=== PATIENT | female | born 1950 | race Asian ===

== ENCOUNTER 2017-02-21 09:38 | Outpatient (CLI) | payer MEDICAID | END 2017-02-21 23:59 | DX: M25.562 Pain in left knee (principal); E04.2 Nontoxic multinodular goiter; I10 Essential (primary) hypertension; E78.5 Hyperlipidemia, unspecified ==

== ENCOUNTER 2017-02-21 10:32 | Outpatient (CLI) | payer MEDICAID | END 2017-02-21 10:33 | disposition home or self-care (01) | DX: M17.0 Bilateral primary osteoarthritis of knee (principal); M25.462 Effusion, left knee; M25.461 Effusion, right knee ==

== ENCOUNTER 2018-03-14 08:00 | Outpatient (CLI) | payer MEDICAID ==
[2018-03-14 18:54] LABS: BASOPHILS % (AUTO) 0.7 %; EOSINOPHILS # (AUTO) 0.2 10^3/uL (0.0-0.7); EOSINOPHILS % (AUTO) 2.6 %; HGB - HEMOGLOBIN 12.6 g/dL (12.0-16.0); LYMPHOCYTES # (AUTO) 1.6 10^3/uL (1.5-3.5); LYMPHOCYTES % (AUTO) 25.3 %; MEAN CORPUSCULAR HEMOGLOBIN 29.6 pg (27.0-31.0); MEAN CORPUSCULAR HGB CONC 31.9 g/dL (32.0-36.0); MEAN CORPUSCULAR VOLUME 92.8 fL (81.0-99.0); MEAN PLATELET VOLUME 8.6 fL (7.9-10.8); MONOCYTES # (AUTO) 0.4 10^3/uL (0.0-1.0); MONOCYTES % (AUTO) 5.8 %; NEUTROPHILS # (AUTO) 4.1 10^3/uL (1.5-6.6); NEUTROPHILS % (AUTO) 65.6 %; PLT - PLATELET COUNT 273 10^3/uL (130-450); RED BLOOD COUNT 4.24 10^6/uL (4.20-5.40); RED CELL DISTRIBUTION WIDTH 13.3 % (12.0-15.0); WHITE BLOOD COUNT 6.2 x10^3/uL (4.8-10.8)
[2018-03-14 19:23] LABS: ALBUMIN 4.2 g/dL (3.2-5.5); ALBUMIN/GLOBULIN RATIO 1.2 (1.0-2.2); ALKALINE PHOSPHATASE 85 IU/L (42-121); ALT ALANINE AMINOTRANSFERASE 25 IU/L (10-60); AST ASPARTATE AMINOTRANSFERASE 22 IU/L (10-42); BILIRUBIN,TOTAL 0.7 mg/dL (0.2-1.0); BUN - BLOOD UREA NITROGEN 13 mg/dL (6-20); CALCIUM 9.1 mg/dL (8.5-10.3); CARBON DIOXIDE - CO2 26 mmol/L (21-32); CHLORIDE 107 mmol/L (101-111); CHOL/HDL RATIO 2.8 (<4.4); CHOLESTEROL 144 mg/dL; CREATININE 0.7 mg/dL (0.4-1.0); GFR - MDRD 83 (>89); GLUCOSE 104 mg/dL (70-100); HDL CHOLESTEROL 52 mg/dL; LDL CHOLESTEROL,CALCULATED 61 mg/dL; LDL/HDL RATIO 1.2 (<4.4); SODIUM 141 mmol/L (135-145); TOTAL PROTEIN 7.6 g/dL (6.7-8.2); VLDL CHOLESTEROL 31 mg/dL
== END 2018-03-14 08:01 ==
LOC: LAB.N 08:00
PROVIDERS: ATTEND Family Medicine
DX: Z00.00 Encounter for general adult medical examination without abnormal findings (principal); E04.2 Nontoxic multinodular goiter
CPT/HCPCS: 36415; 80053; 80061; 83721; 84443; 85025

== ENCOUNTER 2018-12-23 11:20 | Emergency (ER) | payer MEDICAID ==
--- NOTE | 2018-12-23 12:37 | XRAY Report ---
Reason: cough/congestion Procedure Date: 12/23/2018 Accession Number: [id number] / [id number] Procedure: XR - Chest 2 View X-Ray CPT Code: 52114 FULL RESULT: EXAM: CHEST RADIOGRAPHY EXAM DATE: 12/23/2018 12:01 PM. CLINICAL HISTORY: Cough/congestion. COMPARISON: None. TECHNIQUE: 2 views. FINDINGS: Lungs/Pleura: No focal opacities evident. No pleural effusion. No pneumothorax. Normal volumes. Mediastinum: Heart and mediastinal contours are unremarkable. Other: None. IMPRESSION: Normal 2-view chest radiography. [facility]
--- NOTE | 2018-12-23 13:37 | ED Physician Documentation ---
PD HPI URI - Stated complaint Stated Complaint: COUGH - Chief complaint Chief Complaint: Resp - History obtained from History obtained from: Patient, Family - History of Present Illness Timing - onset: Other (2 weeks non productive Cough, the whole family is been sick with same. No fevers. She is mildly short of breath with only coughing. They are also worried about a rash and toenail fungus on the right foot.) Review of Systems Constitutional: denies: Fever, Chills Throat: denies: Dental pain / toothache, Sore throat Cardiac: denies: Chest pain / pressure, Palpitations Respiratory: reports: Cough. 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 12/23/18 Doxycycline Hyclate 100 mg PO BID #20 capsule 12/23/18 - Social History Does the pt smoke?: No Smoking Status: Never smoker Does the pt drink ETOH?: No Does the pt have substance abuse?: No - Immunizations Immunizations are current?: No - POLST Patient has POLST: No PD ED PE NORMAL - Vitals Vital signs reviewed: Yes - General General: Alert and oriented X 3, No acute distress - Neck Neck: Supple, no meningeal sign, No bony TTP - Cardiac Cardiac: RRR, No murmur - Respiratory Respiratory: No respiratory distress, Other (mild rhonchi) - Abdomen Abdomen: Non tender - Extremities Extremities: Other (She has onychiomycosis of all the toenails of the right foot with athlete's foot as well.) - Neuro Neuro: Alert and oriented X 3, Normal speech Results - Vitals Vitals: Vital Signs - 24 hr 12/23/18 11:45 Temperature 37.1 C Heart Rate 74 Respiratory 18 Rate Blood Pressure 131/75 H O2 Saturation 97 Oxygen O2 Source Room air Departure - Departure Disposition: 01 Home, Self Care Clinical Impression: Bronchitis, Onychomycosis Condition: Good Record reviewed to determine appropriate education?: Yes Instructions: ED Bronchitis Asthmatic Prescriptions: Clotrimazole 1 gm TP BID #2 cream..g. Doxycycline Hyclate 100 mg PO BID #20 capsule Comments: Call your doctor to arrange a follow-up appointment, make the next available appointment. In the interim, return anytime if worse or if new symptoms develop. Your blood pressure was elevated today on check into the emergency department. This does not mean that you have hypertension, it is a common phenomenon to come to the emergency department and have elevated blood pressure. I recommend that you see your primary care physician within the week to have it rechecked when you are feeling better.
[2018-12-23 13:45] VITALS: BP 151/72
== END 2018-12-23 13:45 | disposition home or self-care (01) ==
LOC: ED 11:20
DX: J40 Bronchitis, not specified as acute or chronic (principal); B35.1 Tinea unguium; B35.3 Tinea pedis; I10 Essential (primary) hypertension
CPT/HCPCS: 71046; 99283

== ENCOUNTER 2019-02-18 13:47 | Emergency (ER) | payer MEDICAID ==
--- NOTE | 2019-02-18 14:32 | ED Physician Documentation ---
History of Present Illness - Stated complaint Stated Complaint: BP ELEVATED DIZZY ROBERTS - Chief complaint Chief Complaint: Neuro - History obtained from History obtained from: Patient (via [employer]), Family (here mau warren) - History of Present Illness Timing: Other (Progressive headache and lightheaded x 4 days. Also C/O palpitations and chest discomfort, mild, more fluttering. No dyspnea.) - Additonal information Additional information: Further history, she does have a history of similar headaches, but has not had one in a long time. This was prior to moving to the [facility]. She also has a history of what she describes as a weak hearts that improved with her current antihypertensive medications. Review of Systems Ten Systems: 10 systems reviewed and negative Constitutional: reports: Reviewed and negative Nose: reports: Reviewed and negative Throat: denies: Sore throat Cardiac: reports: Reviewed and negative GI: reports: Nausea. 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 : None HEENT: None Psych: None Musculoskeletal: None Derm: None - Past Surgical History Past Surgical History: Yes - Present Medications Home Medications: Ambulatory Orders Medication Instructions Recorded Confirmed Ondansetron Odt [Zofran] 4 mg TL Q6H PRN #10 tablet 02/18/19 RX: Atorvastatin [Lipitor] PO BID 02/18/19 RX: Losartan Potassium OP QPM 02/18/19 RX: Meclizine HCl 25 mg PO Q6H PRN #20 tab.chew 02/18/19 RX: Metoprolol Tartrate PO BID 02/18/19 - Allergies Allergies/Adverse Reactions: Allergies Allergy/AdvReac Type Severity Reaction Status Date / Time No Known Drug Allergies Allergy Verified 02/18/19 14:17 - Living Situation Living Situation: reports: With family - Social History Does the pt smoke?: No Smoking Status: Never smoker Does the pt drink ETOH?: No Does the pt have substance abuse?: No - Immunizations Immunizations are current?: No - POLST Patient has POLST: No PD ED PE NORMAL - Vitals Vital signs reviewed: Yes - General General: Alert and oriented X 3, No acute distress - HEENT HEENT: PERRL, EOMI - Neck Neck: Supple, no meningeal sign, No bony TTP - Cardiac Cardiac: RRR, No murmur - Respiratory Respiratory: No respiratory distress, Clear bilaterally - Abdomen Abdomen: Normal bowel sounds, Soft, Non tender - Back Back: No CVA TTP, No spinal TTP - Derm Derm: Normal color, Warm and dry - Extremities Extremities: No edema, No calf tenderness / cord - Neuro Neuro: Alert and oriented X 3, Normal speech Eye Opening: Spontaneous Motor: Obeys Commands Verbal: Oriented GCS Score: 15 - Psych Psych: Normal mood, Normal affect Results - Vitals Vitals: Vital Signs - 24 hr 02/18/19 02/18/19 14:07 16:53 Temperature 36.4 C L 36.8 C Heart Rate 65 66 Respiratory 18 18 Rate Blood Pressure 190/92 H 132/66 H O2 Saturation 97 97 Oxygen O2 Source Room air - EKG (time done) 1554 Rate: Rate (enter#) (64) Rhythm: NSR [place]: Normal Intervals: Other (IVCD mild, QRSd 117msec) QRS: Normal Ischemia: Non specific changes Compare to prior EKG: Old EKG unavailable (no priors) Computer interpretation: Agree with computer - Labs Labs: Laboratory Tests 02/18/19 02/18/19 02/18/19 03:46 03:46 03:46 ESR 17 Sodium 139 Potassium 4.1 Chloride 104 Carbon Dioxide 24 Anion Gap 11.0 BUN 11 Creatinine 0.6 Estimated GFR (MDRD) 99 Glucose 136 H Calcium 8.7 Troponin I C-Reactive Protein < 1.0 Urine Color Urine Clarity Urine pH Ur Specific [place] Urine Protein Urine Glucose (UA) Urine Ketones Urine Occult Blood Urine Nitrite Urine Bilirubin Urine Urobilinogen Ur Leukocyte Esterase Ur Microscopic Review Urine Culture Comments 02/18/19 02/18/19 15:00 15:45 ESR Sodium Potassium Chloride Carbon Dioxide Anion Gap BUN Creatinine Estimated GFR (MDRD) Glucose Calcium Troponin I < 0.04 C-Reactive Protein Urine Color YELLOW Urine Clarity CLEAR Urine pH 6.5 Ur Specific [place] 1.010 Urine Protein NEGATIVE Urine Glucose (UA) NEGATIVE Urine Ketones NEGATIVE Urine Occult Blood NEGATIVE Urine Nitrite NEGATIVE Urine Bilirubin NEGATIVE Urine Urobilinogen 0.2 (NORMAL) Ur Leukocyte Esterase NEGATIVE Ur Microscopic Review NOT INDICATED Urine Culture Comments NOT INDICATED - Rads (name of study) CT head Radiology: EMP read contemporaneously (NAD) PD MEDICAL DECISION MAKING - ED course ED course: This is a 68-year-old woman who presents with dizziness and headache and some vague chest discomfort that is more of a palpitation than anything else. I was a little worried that some of the history got lost interest in translation, although it was described as a lightheadedness type dizziness. She looks like she had vertigo and that she was laying on her side with her eyes closed despite the lack of photophobia. There is nothing to suggest a central cause of vertigo but we trialed meclizine and Zofran after which she felt much better. Other diagnoses that were considered included giant cell arteritis but her inflammatory markers are negative, intracranial hemorrhage or malignancy but her head CT is negative. Also a brief cardiac work-up was undertaken given the chest discomfort without pertinent positive findings. Departure - Departure Disposition: 01 Home, Self Care Clinical Impression: Headache, Palpitation Condition: Good Record reviewed to determine appropriate education?: Yes Instructions: ED BPV Vertigo Prescriptions: RX: Meclizine HCl 25 mg PO Q6H PRN #20 tab.chew PRN Reason: Dizziness Ondansetron Odt [Zofran] 4 mg TL Q6H PRN #10 tablet PRN Reason: Nausea / Vomiting Comments: Call your doctor to arrange a follow-up appointment, make the next available appointment. In the interim, return anytime if worse or if new symptoms develop. Discharge Date/Time: 02/18/19 16:54
[2019-02-18] MEDS ORDERED: ONDANSETRON ODT 4 MG TABLET TL STA (14:57)
[2019-02-18] MEDS ORDERED: MECLIZINE 12.5 MG TABLET PO STA (14:57)
--- NOTE | 2019-02-18 15:16 | CT Report ---
Reason: new headache Procedure Date: 02/18/2019 Accession Number: [id number] / [id number] Procedure: CT - HEAD WO CPT Code: FULL RESULT: EXAM: CT HEAD EXAM DATE: 02/18/2019 03:06 PM. CLINICAL HISTORY: New headache. COMPARISON: None. TECHNIQUE: Multiaxial CT images were obtained from the foramen magnum to the vertex. Reformats: Sagittal and coronal. IV contrast: None. In accordance with CT protocol optimization, one or more of the following dose reduction techniques were utilized for this exam: automated exposure control, adjustment of mA and/or KV based on patient size, or use of iterative reconstructive technique. FINDINGS: Parenchyma: No intraparenchymal hemorrhage. No evidence of mass, midline shift, or CT findings of infarction. Cadet-white differentiation is distinct. Extraaxial Spaces: Normal for age. No subdural or epidural collections identified. Ventricles: Normal in size and position. Sinuses and Orbits: Imaged paranasal sinuses, orbits, and mastoids show no significant abnormality. Bones: No evidence of fracture or calvarial defect. Other: None. IMPRESSION: No acute intracranial abnormality. RAD[facility]
[2019-02-18 15:19] LABS: CALCIUM 8.7 mg/dL (8.5-10.3); CREATININE 0.6 mg/dL (0.4-1.0)
[2019-02-18 16:00] LABS: BILIRUBIN,URINE NEGATIVE (NEGATIVE); GLUCOSE, URINE (UA) NEGATIVE (NEGATIVE); KETONES,URINE (UA) NEGATIVE (NEGATIVE); LEUKOCYTE ESTERASE, URINE NEGATIVE (NEGATIVE); NITRITE,URINE NEGATIVE (NEGATIVE); OCCULT BLOOD,URINE NEGATIVE (NEGATIVE); PH,URINE 6.5 PH (5.0-7.5); PROTEIN,URINE NEGATIVE (NEGATIVE); UROBILINOGEN,URINE 0.2 (NORMAL) E.U./dL (NORMAL)
[2019-02-18 16:01] LABS: CLARITY,URINE CLEAR (CLEAR)
--- NOTE | 2019-02-18 16:01 | XRAY Report ---
Reason: chest discomfort Procedure Date: 02/18/2019 Accession Number: [id number] / [id number] Procedure: XR - Chest 2 View X-Ray CPT Code: 66841 FULL RESULT: EXAM: CHEST RADIOGRAPHY EXAM DATE: 02/18/2019 03:40 PM. CLINICAL HISTORY: Chest discomfort. COMPARISON: CHEST 2 VIEW 12/23/2018 12:01 PM. TECHNIQUE: 2 views. FINDINGS: Lungs/Pleura: No focal opacities evident. No pleural effusion. No pneumothorax. Normal volumes. Mediastinum: Mild calcifications of the aortic arch. Cardiac silhouette is not enlarged. Other: None. IMPRESSION: No acute cardiopulmonary abnormality. RADIA
[2019-02-18 16:54] VITALS: BP 132/66
== END 2019-02-18 16:54 | disposition home or self-care (01) ==
LOC: ED 13:47
DX: R51 Headache (principal); R00.2 Palpitations; E78.00 Pure hypercholesterolemia, unspecified; I10 Essential (primary) hypertension
CPT/HCPCS: 36415; 70450; 71046; 80048; 81003; 84484; 85651; 86140; 93005; 99283; A9270; Q0162; 81001; 87086

== ENCOUNTER 2019-03-31 08:00 | Outpatient (CLI) | payer MEDICAID ==
[2019-03-31 12:08] LABS: BASOPHILS % (AUTO) 0.9 %; EOSINOPHILS # (AUTO) 0.1 10^3/uL (0.0-0.7); EOSINOPHILS % (AUTO) 1.9 %; LYMPHOCYTES # (AUTO) 1.3 10^3/uL (1.5-3.5); LYMPHOCYTES % (AUTO) 27.1 %; MEAN CORPUSCULAR HEMOGLOBIN 30.2 pg (27.0-31.0); MEAN CORPUSCULAR HGB CONC 33.3 g/dL (32.0-36.0); MEAN CORPUSCULAR VOLUME 90.9 fL (81.0-99.0); MEAN PLATELET VOLUME 8.4 fL (7.9-10.8); MONOCYTES # (AUTO) 0.3 10^3/uL (0.0-1.0); MONOCYTES % (AUTO) 5.5 %; NEUTROPHILS # (AUTO) 3.1 10^3/uL (1.5-6.6); NEUTROPHILS % (AUTO) 64.6 %; PLT - PLATELET COUNT 261 10^3/uL (130-450); RED BLOOD COUNT 4.29 10^6/uL (4.20-5.40); RED CELL DISTRIBUTION WIDTH 13.2 % (12.0-15.0); WHITE BLOOD COUNT 4.7 x10^3/uL (4.8-10.8)
[2019-03-31 12:22] LABS: ALBUMIN/GLOBULIN RATIO 1.1 (1.0-2.2); ALKALINE PHOSPHATASE 88 IU/L (42-121); ALT ALANINE AMINOTRANSFERASE 17 IU/L (10-60); AST ASPARTATE AMINOTRANSFERASE 19 IU/L (10-42); BILIRUBIN,TOTAL 0.6 mg/dL (0.2-1.0); BUN - BLOOD UREA NITROGEN 10 mg/dL (6-20); CALCIUM 8.9 mg/dL (8.5-10.3); CARBON DIOXIDE - CO2 22 mmol/L (21-32); CHLORIDE 108 mmol/L (101-111); CHOL/HDL RATIO 2.6 (<4.4); CHOLESTEROL 129 mg/dL; CREATININE 0.7 mg/dL (0.4-1.0); GFR - MDRD 83 (>89); GLUCOSE 106 mg/dL (70-100); HDL CHOLESTEROL 49 mg/dL; LDL CHOLESTEROL,CALCULATED 51 mg/dL; SODIUM 141 mmol/L (135-145); TOTAL PROTEIN 7.8 g/dL (6.7-8.2); VLDL CHOLESTEROL 29 mg/dL
== END 2019-03-31 23:59 | disposition home or self-care (01) ==
LOC: LAB.N 08:00
PROVIDERS: ATTEND Nurse Practitioner Gerontology
DX: E78.5 Hyperlipidemia, unspecified (principal); I10 Essential (primary) hypertension
CPT/HCPCS: 36415; 80053; 80061; 83721; 85025

== ENCOUNTER 2019-03-31 11:13 | Outpatient (CLI) | payer MEDICAID ==
--- NOTE | 2019-03-31 12:41 | XRAY Report ---
Reason: pain in knee bilaterally Procedure Date: 03/31/2019 Accession Number: [id number] / [id number] Procedure: XRN - Knee 2 View BILAT CPT Code: FULL RESULT: EXAMS: 1. Right Knee Radiography 2. Left Knee Radiography EXAM DATE:03/31/2019 11:35 AM. CLINICAL HISTORY:Pain in knee bilaterally. COMPARISON: KNEE 2 VIEW BILAT 02/21/2017 11:27 AM. TECHNIQUE: 2 views each. FINDINGS: Right Knee: Bones: Normal. No fractures or bone lesions. Joints: Suprapatellar joint effusion is noted with suspected loose bodies in the popliteal fossa region as well as exuberant osteophytosis consistent with tricompartmental osteoarthrosis, moderate to severe joint space narrowing of the medial weightbearing compartment and at least mild joint space narrowing of the lateral weightbearing compartment with chondrocalcinosis. Soft Tissues: Normal. No soft tissue swelling. Left Knee: Bones: Knee joint effusion and intraarticular loose bodies are noted in the setting of marginal osteophytosis, at least moderate transverse narrowing of the medial weightbearing compartment and at least mild joint space narrowing of the lateral weightbearing compartment. Joints: Normal. No effusion. No subluxations. Soft Tissues: Normal. No soft tissue swelling. IMPRESSION: Bilateral tricompartmental osteoarthrosis. RAD[facility]
== END 2019-03-31 11:14 | disposition home or self-care (01) ==
LOC: DI.N 11:13
PROVIDERS: ATTEND Nurse Practitioner Gerontology
DX: M17.0 Bilateral primary osteoarthritis of knee (principal); E78.5 Hyperlipidemia, unspecified; I10 Essential (primary) hypertension
CPT/HCPCS: 36415; 73565; 80053; 80061; 83721; 85025

== ENCOUNTER 2019-08-03 10:30 | Emergency (ER) | payer MEDICAID ==
[2019-08-03 11:03] VITALS: BP 141/71
[2019-08-03] MEDS ORDERED: MECLIZINE 12.5 MG TABLET PO STA (11:16)
[2019-08-03] MEDS ORDERED: SODIUM CHLORIDE 0.9% 1,000 ML IV ONE (11:16)
[2019-08-03 11:27] LABS: BASOPHILS % (AUTO) 0.7 %; EOSINOPHILS # (AUTO) 0.1 10^3/uL (0.0-0.7); EOSINOPHILS % (AUTO) 2.3 %; HGB - HEMOGLOBIN 12.1 g/dL (12.0-16.0); LYMPHOCYTES # (AUTO) 1.1 10^3/uL (1.5-3.5); LYMPHOCYTES % (AUTO) 23.8 %; MEAN CORPUSCULAR HEMOGLOBIN 29.8 pg (27.0-31.0); MEAN CORPUSCULAR HGB CONC 31.7 g/dL (32.0-36.0); MEAN CORPUSCULAR VOLUME 94.1 fL (81.0-99.0); MEAN PLATELET VOLUME 10.2 fL (7.9-10.8); MONOCYTES # (AUTO) 0.3 10^3/uL (0.0-1.0); MONOCYTES % (AUTO) 6.8 %; NEUTROPHILS # (AUTO) 2.9 10^3/uL (1.5-6.6); NEUTROPHILS % (AUTO) 66.2 %; PLT - PLATELET COUNT 242 10^3/uL (130-450); RED BLOOD COUNT 4.06 10^6/uL (4.20-5.40); RED CELL DISTRIBUTION WIDTH 12.5 % (12.0-15.0); WHITE BLOOD COUNT 4.4 x10^3/uL (4.8-10.8)
--- NOTE | 2019-08-03 11:29 | ED Physician Documentation ---
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 These have been ongoing for several years. Seen here back in January for same. No acute findings on head CT at that time. She also states that she has felt dizzy today. Like the room is spinning. [place] nauseated earlier. This is better with rest and worse with movement and standing. Was diagnosed with BPPV a few months ago. Has not taken anything for this today. No chest pain. No shortness of breath. Review of Systems Constitutional: denies: Fever, Chills Ears: denies: Ear pain Nose: denies: Rhinorrhea / runny nose, Congestion Throat: denies: Sore throat Cardiac: denies: Chest pain / pressure, Palpitations Respiratory: denies: Dyspnea, Cough GI: reports: Nausea. 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 : None HEENT: None Psych: None Musculoskeletal: None Derm: None - Past Surgical History Past Surgical History: Yes - Present Medications Home Medications: Ambulatory Orders Medication Instructions Recorded Confirmed Atorvastatin [Lipitor] PO BID 02/18/19 Losartan Potassium OP QPM 02/18/19 Meclizine HCl 25 mg PO Q6H PRN #20 tab.chew 02/18/19 Metoprolol Tartrate PO BID 02/18/19 Ondansetron Odt [Zofran] 4 mg TL Q6H PRN #10 tablet 02/18/19 Meclizine [Antivert] 12.5 - 25 mg PO Q6H PRN #30 tablet 08/03/19 Ondansetron Odt [Zofran] 4 mg TL Q6H PRN #10 tablet 08/03/19 - Allergies Allergies/Adverse Reactions: Allergies Allergy/AdvReac Type Severity Reaction Status Date / Time No Known Drug Allergies Allergy Verified 02/18/19 14:17 - Social History Does the pt smoke?: No Smoking Status: Never smoker Does the pt drink ETOH?: No Does the pt have substance abuse?: No - Immunizations Immunizations are current?: No - POLST Patient has POLST: No PD ED PE NORMAL - Vitals Vital signs reviewed: Yes - General General: Alert and oriented X 3, No acute distress, Well developed/nourished - HEENT HEENT: Atraumatic, PERRL, Ears normal, Moist mucous membranes, Pharynx benign - Neck Neck: Supple, no meningeal sign - Cardiac Cardiac: RRR, Strong equal pulses - Respiratory Respiratory: No respiratory distress, Clear bilaterally - Abdomen Abdomen: Soft, Non tender, Non distended - Derm Derm: Warm and dry, No rash - Extremities Extremities: No edema - Neuro Neuro: Alert and oriented X 3, community mental health worker 2-12 intact, No motor deficit, No sensory deficit, Normal speech, Other (Horizontal nystagmus. Positive Hallpike to the left.) - Psych Psych: Normal mood, Normal affect Results - Vitals Vitals: Vital Signs - 24 hr 08/03/19 08/03/19 10:54 11:01 Temperature 36.7 C 36.4 C L Heart Rate 61 62 Respiratory 14 18 Rate Blood Pressure 147/66 H 141/71 H O2 Saturation 97 98 Oxygen O2 Source Room air - EKG (time done) 1057 Rate: Rate (enter#) (60) Rhythm: NSR [place]: Normal Intervals: Normal CT QRS: Normal Ischemia: Non specific changes Compare to prior EKG: Unchanged from prior EKG - Labs Labs: Laboratory Tests 08/03/19 08/03/19 11:15 11:15 WBC 4.4 L RBC 4.06 L Hgb 12.1 Hct 38.2 MCV 94.1 MCH 29.8 MCHC 31.7 L RDW 12.5 Plt Count 242 MPV 10.2 Neut # (Auto) 2.9 Lymph # (Auto) 1.1 L [place] # (Auto) 0.3 Eos # (Auto) 0.1 Baso # (Auto) 0.0 Absolute Nucleated RBC 0.00 Nucleated RBC % 0.0 Sodium 143 Potassium 3.5 Chloride 107 Carbon Dioxide 27 Anion Gap 9.0 BUN 12 Creatinine 0.7 Estimated GFR (MDRD) 83 L Glucose 143 H Calcium 8.7 Total Bilirubin 0.6 AST 17 ALT 16 Alkaline Phosphatase 90 Total Protein 7.4 Albumin 3.9 Globulin 3.5 Albumin/Globulin Ratio 1.1 Lipase 32 PD MEDICAL DECISION MAKING - ED course Complexity details: reviewed old records, reviewed results, re-evaluated patient, considered differential, d/w patient, d/w family ED course: 68-year-old female with what appears to be BPPV. She has had similar in the past. Possible Mnire's disease? Feels better after meclizine and Zofran. Ambulating well. No focal neurological deficits. Patient and family counseled regarding signs and symptoms for which I believe and urgent re-evaluation would be necessary. Patient with good understanding of and agreement to plan and is comfortable going home at this time This document was made in part using voice recognition software. While efforts are made to proofread this document, sound alike and grammatical errors may occur. Departure - Departure Disposition: 01 Home, Self Care Clinical Impression: BPV (benign positional vertigo) Qualifiers: Laterality: left Qualified Code(s): H81.12 - Benign paroxysmal vertigo, left ear Condition: Good Instructions: ED BPV Vertigo Follow-Up: your,doctor in 1 week [Other] Prescriptions: Meclizine [Antivert] 12.5 - 25 mg PO Q6H PRN #30 tablet PRN Reason: Vertigo Ondansetron Odt [Zofran] 4 mg TL Q6H PRN #10 tablet PRN Reason: Nausea / Vomiting Comments: Use the medications as prescribed. Return if you worsen. This should improve over the next few days. Follow-up with your doctor for further care. Discharge Date/Time: 08/03/19 13:05
[2019-08-03 11:39] LABS: ALBUMIN 3.9 g/dL (3.2-5.5); ALBUMIN/GLOBULIN RATIO 1.1 (1.0-2.2); BILIRUBIN,TOTAL 0.6 mg/dL (0.2-1.0); CALCIUM 8.7 mg/dL (8.5-10.3); CREATININE 0.7 mg/dL (0.4-1.0); TOTAL PROTEIN 7.4 g/dL (6.7-8.2)
== END 2019-08-03 13:05 | disposition home or self-care (01) ==
LOC: ED 10:30
DX: H81.12 Benign paroxysmal vertigo, left ear (principal); R51 Headache; I10 Essential (primary) hypertension
CPT/HCPCS: 36415; 80053; 83690; 85025; 93005; 96360; 99283; 99284; A9270

== ENCOUNTER 2020-07-07 08:00 | Outpatient (CLI) | payer MEDICAID ==
[2020-07-07 12:22] LABS: BASOPHILS % (AUTO) 0.4 %; EOSINOPHILS # (AUTO) 0.1 10^3/uL (0.0-0.7); EOSINOPHILS % (AUTO) 1.6 %; HGB - HEMOGLOBIN 12.9 g/dL (12.0-16.0); LYMPHOCYTES # (AUTO) 1.4 10^3/uL (1.5-3.5); LYMPHOCYTES % (AUTO) 20.9 %; MEAN CORPUSCULAR HEMOGLOBIN 30.5 pg (27.0-31.0); MEAN CORPUSCULAR HGB CONC 32.1 g/dL (32.0-36.0); MEAN PLATELET VOLUME 10.5 fL (7.9-10.8); MONOCYTES # (AUTO) 0.4 10^3/uL (0.0-1.0); MONOCYTES % (AUTO) 5.6 %; NEUTROPHILS # (AUTO) 4.8 10^3/uL (1.5-6.6); NEUTROPHILS % (AUTO) 71.1 %; PLT - PLATELET COUNT 268 10^3/uL (130-450); RED BLOOD COUNT 4.23 10^6/uL (4.20-5.40); RED CELL DISTRIBUTION WIDTH 12.3 % (12.0-15.0); WHITE BLOOD COUNT 6.8 x10^3/uL (4.8-10.8)
[2020-07-07 13:14] LABS: ALBUMIN/GLOBULIN RATIO 1.2 (1.0-2.2); ALKALINE PHOSPHATASE 94 IU/L (42-121); ALT ALANINE AMINOTRANSFERASE 18 IU/L (10-60); AST ASPARTATE AMINOTRANSFERASE 18 IU/L (10-42); BILIRUBIN,TOTAL 0.7 mg/dL (0.2-1.0); BUN - BLOOD UREA NITROGEN 16 mg/dL (6-20); CALCIUM 8.6 mg/dL (8.5-10.3); CARBON DIOXIDE - CO2 23 mmol/L (21-32); CHLORIDE 108 mmol/L (101-111); CHOL/HDL RATIO 2.9 (<4.4); CHOLESTEROL 147 mg/dL; CREATININE 0.6 mg/dL (0.4-1.0); GLUCOSE 108 mg/dL (70-100); HDL CHOLESTEROL 51 mg/dL; LDL CHOLESTEROL,CALCULATED 58 mg/dL; LDL/HDL RATIO 1.1 (<4.4); SODIUM 139 mmol/L (135-145); TOTAL PROTEIN 7.4 g/dL (6.7-8.2); VLDL CHOLESTEROL 38 mg/dL
== END 2020-07-07 23:59 | disposition home or self-care (01) ==
LOC: LAB.WCP 08:00
PROVIDERS: ATTEND Family Medicine
DX: I10 Essential (primary) hypertension (principal); E78.5 Hyperlipidemia, unspecified
CPT/HCPCS: 36415; 80053; 80061; 83721; 85025

== ENCOUNTER 2021-02-16 08:00 | Outpatient (CLI) | payer MEDICAID ==
[2021-02-16 12:06] LABS: BASOPHILS % (AUTO) 0.5 %; EOSINOPHILS # (AUTO) 0.1 10^3/uL (0.0-0.7); HCT - HEMATOCRIT 41.6 % (37.0-47.0); HGB - HEMOGLOBIN 13.2 g/dL (12.0-16.0); LYMPHOCYTES # (AUTO) 1.3 10^3/uL (1.5-3.5); LYMPHOCYTES % (AUTO) 22.4 %; MEAN CORPUSCULAR HEMOGLOBIN 30.8 pg (27.0-31.0); MEAN CORPUSCULAR HGB CONC 31.7 g/dL (32.0-36.0); MONOCYTES # (AUTO) 0.3 10^3/uL (0.0-1.0); MONOCYTES % (AUTO) 5.4 %; NEUTROPHILS # (AUTO) 4.1 10^3/uL (1.5-6.6); NEUTROPHILS % (AUTO) 69.5 %; PLT - PLATELET COUNT 246 10^3/uL (130-450); RED BLOOD COUNT 4.29 10^6/uL (4.20-5.40); RED CELL DISTRIBUTION WIDTH 12.5 % (12.0-15.0); WHITE BLOOD COUNT 5.9 x10^3/uL (4.8-10.8)
[2021-02-16 12:26] LABS: ALBUMIN 4.5 g/dL (3.2-5.5); ALBUMIN/GLOBULIN RATIO 1.4 (1.0-2.2); BILIRUBIN,TOTAL 0.6 mg/dL (0.2-1.0); CALCIUM 9.1 mg/dL (8.5-10.3); CREATININE 0.7 mg/dL (0.4-1.0); POTASSIUM 4.5 mmol/L (3.5-5.0); TOTAL PROTEIN 7.7 g/dL (6.7-8.2)
[2021-02-16 12:36] LABS: THYROID STIMULATING HORMONE 0.97 uIU/mL (0.34-5.60)
[2021-02-16 12:40] LABS: ESTIMATED AVERAGE GLUCOSE 126 mg/dL (70-100)
== END 2021-02-16 23:59 | disposition home or self-care (01) ==
LOC: LAB.N 08:00
PROVIDERS: ATTEND Physician Assistant Medical
DX: R41.81 Age-related cognitive decline (principal)
CPT/HCPCS: 36415; 80053; 82607; 83036; 83921; 84443; 85025